=== PATIENT | male | born 1975 | race Caucasian/White ===

== ENCOUNTER 2016-12-06 00:04 | Emergency (ER) | payer BC ==
--- NOTE | ~2016-12-06 | CO ---
Unit #: [id number] #: [id number] Patient: NIDHI GREER [id number] [facility]. [place], [place] [address] [id number] MR#: [id number] NAME: NIDHI GREER. ROOM: Age: 41 Sex: M Admission Date: 12/06/2016 : 1975 Attending Physician: Tereso Hoffman Aprn Primary Care Physician: Primary Care Physician No Consultation Date: 12/06/2016 CONSULTATION REPORT CHIEF COMPLAINT Left foot pain and swelling. HISTORY OF PRESENT ILLNESS The patient is a 41-year-old male, who thought he was kicking a soccer ball last night at dusk when he instead accidentally kicked a cinder block with his left foot. He developed significant pain and swelling and then was taken to the emergency room. Due to the significant swelling, Orthopedic consultation is requested to rule out compartment syndrome. PAST MEDICAL HISTORY Remarkable for anxiety. HOME MEDICATIONS Neurontin. ALLERGIES None. PAST SURGICAL HISTORY Left hand flexor pollicis longus repair and vasectomy. SOCIAL HISTORY The patient denies tobacco use. He denies excessive alcohol use. He has an office job. REVIEW OF SYSTEMS Unremarkable. He does not take a blood thinner. PHYSICAL EXAMINATION GENERAL: Well-developed, well-nourished male, in no acute distress. VITAL SIGNS: Stable. MUSCULOSKELETAL: Examination of the left foot shows significant dorsal swelling of the foot. There is a bruise in the midfoot overlying the deep peroneal nerve. There was a fluctuant mass consistent with hematoma. There was significant bruising on the dorsal aspect of the foot. The dorsalis pedis pulse and posterior tibial pulses are both 1+/2. There was no plantar swelling. The patient has numbness in the first dorsal interspace, but there is no numbness in the plantar foot nor on the plantar toes. The patient has two 1 cm diameter fracture blisters over the dorsal forefoot. With motion of the toes, there is no significant pain. There is no significant pain with motion of the ankle passively or actively. The patient can flex and extend his toes without difficulty. Unit #: [id number] #: [id number] Patient: NIDHI GREER DIAGNOSTIC STUDIES IMAGING STUDIES: AP lateral and oblique views of the left foot show no fractures or dislocations. There was significant swelling dorsally. IMPRESSION Left dorsal foot contusion with dorsal hematoma. No evidence of compartment syndrome. PLAN 1. Apply a Cam walker boot. The patient may ambulate as tolerated with crutches. 2. Continue ice and elevation. 3. [place] 5/325 one or two p.o. q.4 hours p.r.n. pain, dispensed 20. 4. No work for one week. 5. Follow up with me in my office in 1 week for wound check. If his symptoms worsen, he will give me a call. Dictated by.Jessy Hooker M.D. ZENAIDA/kenn TD: 12/07/2016 08:18 JOB #: [id number] CONSULTATION REPORT Page 1 of 1 X Yesenia Hooker MD X CONSULTATION REPORT
--- NOTE | ~2016-12-06 | CR126 ---
[facility] A Service of [facility] RADIOLOGY TEXT RESULTS PATIENT: NIDHI GREER LOCATION: [facility] [address]-01 : [birth year] UNIT #: [id number] AGE: [address]: Suzan Agarwal MD SEX: M ORDER DR: [id number] [facility] [address] [facility]. [place], [place] [address] [id number] MR#: [id number] Acc #: [id number] NAME: NIDHI GREER. : 1975 SEX: M STUDY DATE/TIME: 12/06/2016 1:29 UNIT: CED ROOM: [id number] STUDY DESCRIPTION: CR Foot Complete Min 3 View Lt Attending Physician: Suzan Agarwal M.D. Ordering Physician: Anthony Davey D.O. Primary Care Physician: Primary Care Physician No MEDICAL IMAGING REPORT This report is preliminary unless electronic signature is present EXAM Left foot series 12/06/2016 HISTORY 41-year-old male in the ED complaining of left foot pain, soft tissue swelling and bruising after injury. Kicked a cement block yesterday. TECHNIQUE Three-view left foot series. FINDINGS Exam shows marked soft tissue swelling over the dorsal aspect of the midfoot and forefoot. No fracture, dislocation or other acute osseous abnormality is demonstrated. No visible radiopaque soft tissue foreign body. IMPRESSION Dorsal soft tissue swelling. Left foot series is otherwise negative. Dictated by... Tyron Guerrero M.D. THIS IS AN ELECTRONICALLY VERIFIED REPORT Tyron Guerrero M.D. at 12/06/2016 9:57 PM ЕЛЕНА/jennifer TD: 12/06/2016 09:05 JOB #: [id number] MEDICAL IMAGING REPORT Page 1 of 1 COPY
--- NOTE | ~2016-12-06 | HP ---
Unit #: [id number] #: [id number] Patient: NIDHI GREER [id number] [facility]. [place], [place] [address] [id number] MR#: [id number] NAME: NIDHI GREER. ROOM: [id number] Age: 41 Sex: M Admission Date: 12/06/2016 : 1975 Attending Physician: Suzan Agarwal M.D. Primary Care Physician: No Primary Care Physician HISTORY AND PHYSICAL DIAGNOSIS ON ADMISSION Right foot pain. DIAGNOSES ON DISCHARGE 1. Left foot contusion with distal hematoma. 2. Anxiety disorder. CONSULTATION Dr. Hooker - Orthopedics. HISTORY OF PRESENT ILLNESS 41-year-old male was admitted to [facility] with right foot pain when patient kicked a cinder block thinking that it was a ball. Patient stated that the swelling was worse and the pain was so much that he decided to come to the hospital. In the ER, there was a concern of compartment syndrome. Therefore, Dr. Hooker, orthopedics, was requested to see patient in consultation. The patient denies having headache, visual problems, sore throat, sinus congestion. He denies any fever, chills or cough. There is no history of rectal bleeding or blood in stools. The rest of the review of systems is negative. PAST MEDICAL HISTORY Anxiety disorder. PAST SURGICAL HISTORY 1. Vasectomy. 2. Left arm glass removal. ALLERGIES There are no known drug allergies. HOME MEDICATIONS The patient states that he takes Neurontin twice a day for his nerve pain which is mostly in back. SOCIAL HISTORY The patient denies smoking or drinking. FAMILY HISTORY Patient denies any significant history in his family. MEDICATIONS The patient is on Neurontin 600 mg b.i.d. Unit #: [id number] #: [id number] Patient: NIDHI GREER PHYSICAL EXAMINATION GENERAL: The patient is lying comfortably in bed, is not in any obvious acute distress. VITAL SIGNS: Temperature 97.9, pulse is 80/minute, respiratory rate is 16/minute, blood pressure is 154/91. HEENT: No conjunctival congestion. Sclerae is not icteric. NECK: Supple. Trachea is central. RESPIRATORY: Decreased breath sounds bilaterally. There are no wheezes or crackles. HEART: Regular rate and rhythm. S1, S2. ABDOMEN: Soft, nontender. Bowel sounds are present in all four quadrants. EXTREMITIES: Patient had left foot dorsal swelling with hematoma. There was no plantar swelling or numbness. Bruising was present. DIAGNOSTIC STUDIES LABORATORY: Labs on admission - patient's creatinine is 1.3, sodium 135, potassium was 3.2. Calcium was 8.4. WBC 7.9, hemoglobin was 13.2, platelet count is 231. The patient had left foot x-ray done which revealed dorsal soft tissue swelling. Otherwise, it was negative. ASSESSMENT AND PLAN 41-year-old patient presented to the hospital with left foot swelling. Details are as per admission H and P. The patient has already been seen by Dr. Hooker, who has examined patient and stated that patient has left foot contusion with distal hematoma. There is no compartment syndrome. The patient is advised to follow up with Dr. Hooker in one week. Dr. Hooker recommended Cam walker boot and the use of crutches. He also advised him to have weight bearing as tolerated and elevate his left foot and use ice. He also gave him a script for [place] 5/325 mg, one to two q.4 hours p.r.n. for pain. DISPOSITION The patient will be discharged home. He is advised to follow with Dr. Hooker as recommended and follow up with primary care physician in one week and have a CBC and BMP done. Please make note that patient's potassium level was low. We will repeat patient's potassium level prior to discharge and patient will have followup potassium with primary care physician. Dictated by Eris Martin TD: 12/06/2016 12:20 JOB #: [id number] Unit #: [id number] #: [id number] Patient: NIDHI GREER HISTORY AND PHYSICAL Page 1 of 1 X Suzan Agarwal MD HISTORY AND PHYSICAL
[2016-12-06 06:05] LABS: BASOPHIL# 0.1 X10e3 (0-0.3); DIFF IND NO; EOSINOPHIL# 0.5 X10e3 (0-0.7); EOSINOPHIL% 5.8 % (0.0-7.0); HEMATOCRIT 39.7 % (38.0-50.0); HEMOGLOBIN 13.2 gm/dL (13.0-16.0); LYMPHOCYTE# 2.2 X10e3 (1.0-3.5); LYMPHOCYTE% 27.7 % (17.0-45.0); MEAN CELL VOLUME 86.6 FL (83-96); MEAN CORPUSCULAR HEMOGLOBIN 28.8 PG (28-34); MEAN CORPUSCULAR HGB CONC 33.3 g/dL (30-36); MEAN PLATELET VOLUME 7.9 FL (6.5-11.5); MONOCYTE# 0.7 X10e3 (0-1.0); MONOCYTE% 9.1 % (3.0-12.0); NEUTROPHIL# 4.5 X10e3 (1.5-7.1); NEUTROPHIL% 56.4 % (40-75); PLATELET COUNT 231 X10e3 (140-420); RED BLOOD COUNT 4.59 X10e (3.90-5.60); RED CELL DISTRIBUTION WIDTH 13.1 % (11.0-15.5); WHITE BLOOD COUNT 7.9 X10e3 (4.0-10.5)
[2016-12-06 06:23] LABS: BUN/CREATININE RATIO 11.53; CALCIUM SERUM 8.4 mg/dL (8.4-10.2); CREATININE SERUM 1.3 mg/dL (0.6-1.4); GLOM FILT RATE Estimated 68.8 mL/min (>60); POTASSIUM 3.2 mmol/L (3.5-5.1)
[2016-12-06] MEDS ORDERED: NEURONTIN600 MG PO (06:26)
== END 2016-12-06 11:15 | disposition home or self-care (01) ==
LOC: CED 00:04 → CEDOF 07:11 → CED 07:11 → CEDOF 08:39 → CED 11:15
PROVIDERS: Nurse Practitioner Family
DX: S90.32XA Contusion of left foot, initial encounter (principal); F41.9 Anxiety disorder, unspecified; F17.210 Nicotine dependence, cigarettes, uncomplicated; Z79.899 Other long term (current) drug therapy; W22.8XXA Striking against or struck by other objects, initial encounter; Y92.009 Unspecified place in unspecified non-institutional (private) residence as the place of occurrence of the external cause
CPT/HCPCS: 36415; 73630; 80048; 85025; 99283; 99285